=== PATIENT | female | born 1965 | race Caucasian/White ===

== ENCOUNTER 2021-05-21 09:28 | Emergency (ER) | payer OTHER ==
[2021-05-21 09:33] VITALS: TEMP 97; BMI 33.6
[2021-05-21] MEDS ORDERED: morphine CARPU-JECT 8 MG/1 ML DISP.SYRIN IVPUSH ONE (09:40)
[2021-05-21] MEDS ORDERED: LIDOCAINE HCL 1%, 10 MG/ML (50 mL VIAL) INF ONE (10:15)
[2021-05-21] MEDS ORDERED: KETAMINE HCL 200 MG/20 ML VIAL IVPUSH ONE ×2 (10:32→11:26)
[2021-05-21] MEDS ORDERED: LIDOCAINE HCL 1%, 10 MG/ML (20ML VIAL) ONE (10:40)
[2021-05-21] MEDS ORDERED: KETAMINE HCL 200 MG/20 ML VIAL ONE (10:40)
[2021-05-21 12:23] VITALS: BP 139/90; PULSE 85
== END 2021-05-21 14:01 | disposition home or self-care (01) ==
LOC: JER 09:28
PROC: 0RSJXZZ Reposition Right Shoulder Joint, External Approach (ICD-10-PCS; principal; 2021-05-21)
PROC: 3E033GC Introduction of Other Therapeutic Substance into Peripheral Vein, Percutaneous Approach (ICD-10-PCS; 2021-05-21)
PROC: 3E033GC Introduction of Other Therapeutic Substance into Peripheral Vein, Percutaneous Approach (ICD-10-PCS; 2021-05-21)
DX: S43.004A Unspecified dislocation of right shoulder joint, initial encounter (principal)
CPT/HCPCS: 73030-TC-RT-FY; 99284-25; C9803; U0003; U0005

== ENCOUNTER 2021-08-03 03:54 | Emergency (ER) | payer OTHER ==
[2021-08-03 04:04] VITALS: BP 146/87; PULSE 76; TEMP 98.3; BMI 30.9
[2021-08-03] MEDS ORDERED: ACETAMINOPHEN 325 MG TABLET (FP) PO ONE (04:45)
[2021-08-03] MEDS ORDERED: LIDOCAINE 5% TOPICAL PATCH TP ONE (04:45)
[2021-08-03] MEDS ORDERED: LIDOCAINE PATCH REMOVAL MC SCH (22:00)
== END 2021-08-03 05:08 | disposition left against medical advice (07) ==
LOC: JER 03:54
DX: T76.11XA Adult physical abuse, suspected, initial encounter (principal)
CPT/HCPCS: 99283-25

== ENCOUNTER 2021-08-04 18:15 | Emergency (ER) | payer OTHER ==
[2021-08-04 18:30] VITALS: BMI 31.8
[2021-08-04] MEDS ORDERED: ACETAMINOPHEN 500 MG TABLET (FP) PO ONE (19:22)
[2021-08-04] MEDS ORDERED: ACETAMINOPHEN 500 MG TABLET (FP) ONE (20:14)
[2021-08-04 21:53] VITALS: BP 166/89; PULSE 89; TEMP 98
== END 2021-08-04 21:55 | disposition home or self-care (01) ==
LOC: JERFT 18:15
DX: G44.309 Post-traumatic headache, unspecified, not intractable (principal)
CPT/HCPCS: 70450-TC; 72125-TC; 99284-25

== ENCOUNTER 2021-08-30 09:42 | Emergency (ER) | payer OTHER ==
[2021-08-30] MEDS ORDERED: morphine CARPU-JECT 4 MG/1 ML DISP.SYRIN IVPUSH ONE (10:14)
[2021-08-30] MEDS ORDERED: morphine SULFATE 4 MG/ML VIAL ONE (10:15)
[2021-08-30] MEDS ORDERED: PROPOFOL 200 MG/20 ML VIAL IVPUSH ONE (10:55)
[2021-08-30] MEDS ORDERED: KETAMINE HCL 200 MG/20 ML VIAL IVPUSH ONE (10:55)
[2021-08-30] MEDS ORDERED: KETAMINE HCL 200 MG/20 ML VIAL ONE (11:04)
[2021-08-30] MEDS ORDERED: PROPOFOL 1,000,000 MCG/100 ML VIAL ONE (11:05)
[2021-08-30 11:55] VITALS: TEMP 98; BMI 30.8
[2021-08-30 14:05] VITALS: BP 154/89; PULSE 78
== END 2021-08-30 14:05 | disposition home or self-care (01) ==
LOC: JER 09:42
PROC: 0RSJXZZ Reposition Right Shoulder Joint, External Approach (ICD-10-PCS; principal; 2021-08-30)
PROC: 3E033GC Introduction of Other Therapeutic Substance into Peripheral Vein, Percutaneous Approach (ICD-10-PCS; 2021-08-30)
PROC: 3E033NZ Introduction of Analgesics, Hypnotics, Sedatives into Peripheral Vein, Percutaneous Approach (ICD-10-PCS; 2021-08-30)
PROC: 3E033GC Introduction of Other Therapeutic Substance into Peripheral Vein, Percutaneous Approach (ICD-10-PCS; 2021-08-30)
DX: S43.004A Unspecified dislocation of right shoulder joint, initial encounter (principal); Y99.9 Unspecified external cause status
CPT/HCPCS: 73030-TC-RT-FY; 99284-25

== ENCOUNTER 2022-05-11 14:03 | Emergency (ER) | payer OTHER ==
[2022-05-11 14:29] VITALS: BP 164/99; PULSE 72; TEMP 97.9; BMI 32.9
[2022-05-11] MEDS ORDERED: LIDOCAINE 5% TOPICAL PATCH TP ONE (15:04)
[2022-05-11] MEDS ORDERED: ACETAMINOPHEN 500 MG TABLET (FP) PO ONE (15:04)
[2022-05-11] MEDS ORDERED: ACETAMINOPHEN 500 MG TABLET (FP) ONE (16:09)
[2022-05-11] MEDS ORDERED: LIDOCAINE 5% TOPICAL PATCH ONE (16:09)
[2022-05-11] MEDS ORDERED: LIDOCAINE PATCH REMOVAL MC SCH (22:00)
== END 2022-05-11 17:35 | disposition home or self-care (01) ==
LOC: JERFT 14:03 → JER 14:03 → JERFT 17:35
DX: S09.90XA Unspecified injury of head, initial encounter (principal); G44.309 Post-traumatic headache, unspecified, not intractable; S09.93XA Unspecified injury of face, initial encounter; Y04.0XXA Assault by unarmed brawl or fight, initial encounter
CPT/HCPCS: 70450-TC; 70486-TC; 72100-TC-FY; 72125-TC; 99285-25